=== PATIENT | female | born 1990 | race Hispanic/Latino ===

== ENCOUNTER 2017-06-23 08:30 | Emergency (ER) | payer SELFPAY ==
[2017-06-23 09:43] LABS: #Basophils 0.1 thou/uL (0.0-0.2); #Eosinphils 0.2 thou/uL (0.0-0.7); #Lymphocytes 1.9 thou/uL (1.20-3.40); #Monocytes 0.5 thou/uL (0.11-0.59); #Neutrophils 3.6 thou/uL (1.40-6.50); %Basophils 0.8 % (0.0-1.0); %Eosinophils 2.7 % (0.0-10.0); %Lymphocytes 30.4 % (21.0-51.0); %Monocytes 8.6 % (0.0-10.0); Hematocrit 43.4 % (36.0-47.0); Mean Platelet Volume 7.2 fL (7.4-10.4); Red Blood Cell (RBC) Count 4.97 mill/uL (4.20-5.40); White Blood Cell (WBC) Count 6.3 thou/uL (4.8-10.8)
[2017-06-23 09:51] LABS: Bilirubin Negative (Negative); Blood, Urine Negative (Negative); Glucose, Urine (Dipstick) Negative (Negative); Ketone, Urine Negative (Negative); Nitrite Negative (Negative); Protein, Urine (Dipstick) Negative (Neg-Trace); Urobilinogen 0.2 mg/dL (0.2-1.0)
[2017-06-23 09:56] LABS: ALT (SGPT) 18 U/L (8-55); AST (SGOT) 20 U/L (5-34); Alkaline Phosphatase 85 U/L (40-150); Anion Gap 12 mmol/L (10-20); BUN (Urea Nitrogen) 11 mg/dL (7.0-18.7); Bilirubin, Total 0.6 mg/dL (0.2-1.2); Calc. Creatinine Clearance 0 mL/min (70-130); Carbon Dioxide 24 mmol/L (22-29); Chloride 105 mmol/L (98-107); Estimated GFR-MDRD Greater than 90; Globulin 3.2 g/dL (2.4-3.5); Protein, Total 7.4 g/dL (6.0-8.3)
[2017-06-23 09:59] LABS: Troponin I Less than 0.010 ng/mL (< 0.028)
--- NOTE | 2017-06-23 10:10 | RAD ---
TWO VIEWS OF THE CHEST: 06/23/2017 HISTORY: Chest pain. Numbness. Chills. Seeing spots. COMPARISON: 09/16/2005 FINDINGS: No pneumothorax of pleural fluid. No focal consolidation or alveolar edema. Heart and mediastinal contour is unremarkable. Clips in the right upper quadrant suggest a prior cholecystectomy. IMPRESSION: No acute findings. POS: [facility]
[2017-06-23] MEDS ORDERED: Acetaminophen 500 MG TAB ONE (10:46)
== END 2017-06-23 12:47 | disposition home or self-care (01) ==
LOC: ERS 08:30
DX: E86.0 Dehydration (principal); M79.1 Myalgia; F17.210 Nicotine dependence, cigarettes, uncomplicated
CPT/HCPCS: 36415; 71020; 80053; 81003; 82553; 84484; 84703; 85025; 85379; 93005; 96360; 96361

== ENCOUNTER 2017-08-13 19:17 | Emergency (ER) | payer OTHER, SELFPAY ==
[2017-08-13] MEDS ORDERED: Ondansetron ODT 4 MG TAB ONE (22:09)
[2017-08-13] MEDS ORDERED: Ketorolac Tromethamine 30 MG/ML VIAL ONE (22:09)
== END 2017-08-13 22:10 | disposition home or self-care (01) ==
LOC: ERS 19:17
DX: J10.1 Influenza due to other identified influenza virus with other respiratory manifestations (principal); F17.210 Nicotine dependence, cigarettes, uncomplicated
CPT/HCPCS: 96372; J1885; Q0162

== ENCOUNTER 2018-05-26 07:46 | Observation (INO) | payer OTHER, SELFPAY ==
--- NOTE | 2018-05-26 08:28 | RAD ---
PORTABLE CHEST 1 VIEW: DATE: 05/26/18. TIME: 8:03 a.m. HISTORY: Cough. FINDINGS: The heart size is normal. The lungs are expanded without confluent areas of consolidation, pneumotho races, or pleural effusions. IMPRESSION: No radiographic evidence of acute cardiopulmonary process. POS: [facility]
[2018-05-26] MEDS ORDERED: Albuterol Sulfate 2.5 mg/0.5 ml Neb ONE (08:40)
[2018-05-26] MEDS ORDERED: Albuterol Sulfate 2.5 mg/3 ml Neb ONE (08:40)
[2018-05-26] MEDS ORDERED: predniSONE 20 MG TAB ONE (08:44)
[2018-05-26 09:05] LABS: #Eosinphils 0.3 thou/uL (0.0-0.7); #Lymphocytes 1.5 thou/uL (1.20-3.40); #Monocytes 0.9 thou/uL (0.11-0.59); #Neutrophils 10.7 thou/uL (1.40-6.50); %Basophils 0.2 % (0.0-1.0); %Eosinophils 2.6 % (0.0-10.0); %Lymphocytes 10.9 % (21.0-51.0); %Monocytes 6.8 % (0.0-10.0); %Neutrophils 79.7 % (42.0-75.0); Mean Corpuscular HGB CONC 32.4 g/dL (32.0-36.0); Mean Corpuscular Volume 86.4 fL (78.0-98.0); Mean Platelet Volume 7.3 fL (7.4-10.4); Platelet Count 304 thou/uL (130-400); RBC Distribution Width 12.3 % (11.5-14.5); Red Blood Cell (RBC) Count 5.34 mill/uL (4.20-5.40); White Blood Cell (WBC) Count 13.4 thou/uL (4.8-10.8)
[2018-05-26 09:08] LABS: BHCG - Serum Negative (NEGATIVE); Pregs Control Background? CLEAR/WHITE (CLR/WHITE); Pregs Control Bar Appear? YES (CONTROL BAR)
[2018-05-26 09:23] LABS: ALT (SGPT) 11 U/L (8-55); AST (SGOT) 16 U/L (5-34); Albumin 4.6 g/dL (3.5-5.0); Alkaline Phosphatase 91 U/L (40-150); Anion Gap 14 mmol/L (10-20); BUN (Urea Nitrogen) 7 mg/dL (7.0-18.7); Bilirubin, Total 0.8 mg/dL (0.2-1.2); Calc. Creatinine Clearance 0 mL/min (70-130); Calcium 9.6 mg/dL (7.8-10.44); Carbon Dioxide 20 mmol/L (22-29); Chloride 106 mmol/L (98-107); Estimated GFR-MDRD Greater than 90; Globulin 3.5 g/dL (2.4-3.5); Glucose 94 mg/dL (70-105); Potassium 3.8 mmol/L (3.5-5.1); Protein, Total 8.1 g/dL (6.0-8.3); Sodium 136 mmol/L (136-145)
[2018-05-26] MEDS ORDERED: Azithromycin 250 MG TAB ONE (09:30)
[2018-05-26] MEDS ORDERED: cefTRIAXone\\ROCEPHIN 1 GM VIAL ONE (09:30)
[2018-05-26] MEDS ORDERED: Acetaminophen 325 MG TAB PO PRN (11:38)
[2018-05-26] MEDS ORDERED: Ondansetron ODT 4 MG TAB PO PRN (11:38)
[2018-05-26] MEDS ORDERED: Guaifenesin DM 100-10/5 ML UDCUP PO PRN (11:38)
[2018-05-26 13:02] VITALS: BMI 27.9
[2018-05-26 15:09] LABS: Legionella Urinary Ag Negative (Negative); Strep pneumo Urine Ag NEGATIVE (NEGATIVE)
--- NOTE | 2018-05-26 17:12 | PDOC.FPRHP ---
- History of Present Illness Chief Complaint: Cough History of Present Illness: 28 yo F here with complaint of 24 hours of productive cough. She states that she started coughing last night. She also notes associated SOB and diarrhea. She denies bloody sputum, fever, chills, or chest pain. Her daughter was recently diagnosed with CAP and treated with amoxicillin. PCP [facility] ED Course: In the ED she was noted to be tachycardic and have an elevated WBC count with left shift. CXR was negative. D Dimer was also negative. Pt was started on azithromycin and rocephin for CAP. - Allergies/Adverse Reactions Allergies Allergy/AdvReac Type Severity Reaction Status Date / Time No Known Allergies Allergy Unverified 05/26/18 12:52 - Home Medications Medication Instructions Recorded Confirmed Type No Known 05/26/18 05/26/18 History - History PMHx: None PSHx: None FHx: Paternal HTN and DM Maternal HTN and DM Social: Occasional etoh. Denies tobacco. Occasional marijuana - Review of Systems General: denies: fever/chills, weight/appetite/sleep changes, night sweats Eyes: denies: vision changes ENT: reports: nasal congestion, rhinorrhea Respiratory: reports: cough, shortness of breath Cardiovascular: denies: chest pain, palpitation Gastrointestinal: reports: diarrhea. denies: nausea, vomiting, abdominal pain, GI bleeding Genitourinary: denies: dysuria Skin: denies: rashes, lesions Musculoskeletal: denies: pain, tenderness Neurological: denies: numbness, syncope Psychological: denies: anxiety, depression - Vital signs BP: 147/99 HR: 108 RR: 20 Tmax: 98.7 Pox: 95% on RA Wt: 66 kg - Physical Exam Constitutional: NAD, awake, alert and oriented HEENT: normocephalic and atraumatic, PERRLA, EOMI Neck: trachea midline Chest: no-tender to palpation, no lesions Heart: RRR, normal S1/S2, no murmurs/rubs/gallops -Lungs: Diffuse wheezing. No rhonchi Abdomen: soft, non-tender, bowel sounds present Musculoskeletal: normal structure, normal tone Neurological: no focal deficit, CN II-XII intact Skin: no rash/lesions, good turgor Heme/Lymphatic: no unusual bruising or bleeding Psychiatric: normal mood and affect, good judgment and insight FMR H&P: Results - Labs Result Diagrams: 05/26/18 08:46 05/26/18 08:46 Lab results: WBC 13.4 thou/uL (4.8-10.8) H 05/26/18 08:46 Hgb 15.0 g/dL (12.0-16.0) 05/26/18 08:46 Hct 46.1 % (36.0-47.0) 05/26/18 08:46 MCV 86.4 fL (78.0-98.0) 05/26/18 08:46 Plt Count 304 thou/uL (130-400) 05/26/18 08:46 Neutrophils % 79.7 % (42.0-75.0) H 05/26/18 08:46 Sodium 136 mmol/L (136-145) 05/26/18 08:46 Potassium 3.8 mmol/L (3.5-5.1) 05/26/18 08:46 Chloride 106 mmol/L (98-107) 05/26/18 08:46 Carbon Dioxide 20 mmol/L (22-29) L 05/26/18 08:46 BUN 7 mg/dL (7.0-18.7) 05/26/18 08:46 Creatinine 0.69 mg/dL (0.6-1.1) 05/26/18 08:46 Glucose 94 mg/dL (70-105) 05/26/18 08:46 Calcium 9.6 mg/dL (7.8-10.44) 05/26/18 08:46 Total Bilirubin 0.8 mg/dL (0.2-1.2) 05/26/18 08:46 AST 16 U/L (5-34) 05/26/18 08:46 ALT 11 U/L (8-55) 05/26/18 08:46 Alkaline Phosphatase 91 U/L (40-150) 05/26/18 08:46 Serum Total Protein 8.1 g/dL (6.0-8.3) 05/26/18 08:46 Albumin 4.6 g/dL (3.5-5.0) 05/26/18 08:46 - Radiology Interpretation Chest x-ray Status: report reviewed by me (NAD) FMR H&P: A/P - Problem List (1) Sepsis Current Visit: Yes Status: Acute Code(s): A41.9 - SEPSIS, UNSPECIFIED ORGANISM (2) CAP (community acquired pneumonia) Current Visit: Yes Status: Acute Code(s): J18.9 - PNEUMONIA, UNSPECIFIED ORGANISM Qualifiers: Laterality: unspecified laterality Qualified Code(s): J18.9 - Pneumonia, unspecified organism - Plan Sepsis - Pt received adequate IVF in ER. Continue maintenance IVF - Rocephin/Azithro - Cx pending - Monitor vitals - Legionella/s pneumo urine antigen pending CAP - above Diet regular PPx SCD, FAUZIA score 1 Code DNR. Had long discussion with patient regarding code status. I explained that typically patients her age and with her good health choose to be full code. She states that she will continue to consider her options and let her doctor or nurse know if she changes her mind. Dispo: Pt is currently stable. I expect that she will improve quickly. Likely LOS 1-2 days. FMR H&P: Upper Level - Plan Date/Time: 05/26/18 049 I, [], have evaluated this patient and agree with findings/plan as outlined by international logistics manager resident. Pertinent changes/additions are listed here. Attending Addendum - Attending Addendum Date/Time: 05/26/18 043 I personally evaluated the patient and discussed the management with Dr. Doll and Pedro Pablo. I agree with and repeated the History, Examination, Assessment and Plan documented above with any addition or exceptions noted below. Ill appearing, no distress, coughing throughout interview Tachy, regular, without murmur No inc wob, no crackles, diffuse wheezes BS+, NTTP Fluid resuscitate, empiric tx for cap, steroids + nebs
[2018-05-26] MEDS ORDERED: Doxycycline 100 MG CAP PO SCH (21:00)
[2018-05-26] MEDS: guaiFENesin/DM ER PO SCH (21:20)
[2018-05-27 03:45] VITALS: TEMP 98.6
[2018-05-27 05:37] LABS: Anion Gap 12 mmol/L (10-20); BUN (Urea Nitrogen) 5 mg/dL (7.0-18.7); Calc. Creatinine Clearance 133 mL/min (70-130); Calcium 9.4 mg/dL (7.8-10.44); Carbon Dioxide 22 mmol/L (22-29); Chloride 105 mmol/L (98-107); Estimated GFR-MDRD Greater than 90; Glucose 92 mg/dL (70-105); Potassium 3.3 mmol/L (3.5-5.1); Sodium 136 mmol/L (136-145)
[2018-05-27 05:42] LABS: #Basophils 0.1 thou/uL (0.0-0.2); #Eosinphils 0.3 thou/uL (0.0-0.7); #Lymphocytes 3.1 thou/uL (1.20-3.40); #Monocytes 1.2 thou/uL (0.11-0.59); #Neutrophils 6.9 thou/uL (1.40-6.50); %Basophils 0.4 % (0.0-1.0); %Eosinophils 2.5 % (0.0-10.0); %Lymphocytes 26.7 % (21.0-51.0); %Monocytes 10.5 % (0.0-10.0); %Neutrophils 59.9 % (42.0-75.0); Hemoglobin 13.8 g/dL (12.0-16.0); Mean Corpuscular HGB CONC 33.3 g/dL (32.0-36.0); Mean Corpuscular Volume 87.1 fL (78.0-98.0); Mean Platelet Volume 7.3 fL (7.4-10.4); Platelet Count 290 thou/uL (130-400); RBC Distribution Width 12.2 % (11.5-14.5); Red Blood Cell (RBC) Count 4.74 mill/uL (4.20-5.40); White Blood Cell (WBC) Count 11.5 thou/uL (4.8-10.8)
--- NOTE | 2018-05-27 06:24 | PDOC.FM ---
- Objective MAR Reviewed: Yes Vital Signs & Weight: Vital Signs (12 hours) Temp Pulse Resp BP BP Pulse Ox 05/27/18 03:39 98.6 F 83 18 128/79 96 05/26/18 23:40 98.5 F 82 16 132/83 97 05/26/18 19:46 98.9 F 88 16 129/75 95 Weight Weight 67.132 kg I&O: 05/25/18 05/26/18 05/27/18 06:59 06:59 06:59 Intake Total 930 Output Total 550 Balance 380 Result Diagrams: 05/27/18 05:09 05/27/18 05:09 Dx/Plan (1) CAP (community acquired pneumonia) Code(s): J18.9 - PNEUMONIA, UNSPECIFIED ORGANISM Status: Acute Qualifiers: Laterality: unspecified laterality Qualified Code(s): J18.9 - Pneumonia, unspecified organism (2) Sepsis Code(s): A41.9 - SEPSIS, UNSPECIFIED ORGANISM Status: Acute - Plan Plan: This is an otherwise healthy 28 yo female Sepsis 2/2 CAP -Resolved. Afebrile, VSS overnight. Legionella/ s pneumo urine antigen negative. Flu swab negative CAP -Pt. is receiving rocephin/azithromycin. Code: DNR Prophylaxis: Family: Disposition: home today pending clinical presentation
[2018-05-27] MEDS ORDERED: Potassium Chloride 20 MEQ TAB PO SCH (08:00)
[2018-05-27] MEDS ORDERED: Cepastat Lozenges 1 LOZ PO PRN (08:16)
[2018-05-27] MEDS ORDERED: cefTRIAXone\\ROCEPHIN 1 GM in Sodium Chloride 0.9% 100 ML IVPB SCH (09:00)
[2018-05-27] MEDS ORDERED: Azithromycin 250 MG TAB PO SCH (09:00)
[2018-05-27] MEDS: guaiFENesin/DM ER PO SCH (09:33)
--- NOTE | 2018-05-27 11:02 | CT ---
CT CHEST WITH CONTRAST: Date: 05/27/18 HISTORY: Pneumonia. COMPARISON: Chest radiograph dated 05/26/18. FINDINGS: There is a 5.0 mm nodule in the left lung base, which is ovoid. No evidence for pneumonia. No pneumot horax. Thyroid is unremarkable. No mediastinal adenopathy. No pericardial effusion. Prior cholecystectomy. R emainder of the upper abdomen is unremarkable. No thoracic spine compression fracture. There is a hypodensity interpolar left kidney not definitivel y a cyst. No acute rib fracture. IMPRESSION: 1. No evidence for pneumonia. 2. 5.0 mm left lower lobe pulmonary nodule. In a low risk patient, no follow-up is required. 3. Hypodensity interpolar left kidney not definitively a cyst. Follow-up ultrasound or renal protoco l CT/MRI in 6 months recommended. POS: [facility]
[2018-05-27] MEDS ORDERED: Albuterol Sulfate 1.25 MG/3 ML NEB NEB PRN (11:29)
[2018-05-27] MEDS ORDERED: Albuterol Sulfate 1.25 MG/3 ML NEB NEB SCH (11:30)
[2018-05-27 12:10] VITALS: BP 123/67
[2018-05-27 12:50] LABS: Syphilis Antibody Nonreactive (Nonreactive); Syphilis Antibody Index 0.05 S/CO (<1.00 Non-Reactive)
[2018-05-27 12:52] LABS: HIV (1/2) Antibody/Antigen Non-Reactive (NonReactive); Hep C IgG Ab Non-Reactive (NonReactive); Hep C Index 0.12 S/CO (0-0.79)
--- NOTE | 2018-05-27 13:09 | ADD-PRG ---
ADDENDUM This is an addendum to the note of Dr. Chucky Griffiths. Ms. Castrejon is a pleasant 28-year-old lady who was admitted with possible pneumonia. Her lungs still sound quite "wet" and she still has some expiratory wheezes and rhonchi. Her physical exam and hist ory and physical seem consistent with atypical pneumonia and we will discontinue Rocephin and continu e her on azithromycin. Clinically, she states she feels much better. We will likely discharge her l ater today or tomorrow on Zithromax for close followup.
--- NOTE | 2018-05-27 14:27 | PDOC.EVN ---
Event Note - Event Note Event Note: S: Feeling much better and sleeping comfortably. She is comfortable with discharge this afternoon with follow-up in clinic on Friday. Symptoms improved with neb. Discussed labs and CT findings and recommendation for repeat in 6 months. O: VSS, satting 96% on RA HEENT: atraumatic, normocephalic CV: RRR, no murmur RESP: scattered expiratory wheezing, greater at bases BL ABD: nondistended EXT: without edema A/P: Discharge this afternoon to complete course of azithromycin outpatient. Will also send neb rx as patient has nebulizer at home and had relief with treatment here. Return precautions discussed.
[2018-05-27] MEDS ORDERED: Benzonatate 100 MG CAP PO SCH (15:00)
--- NOTE | 2018-05-28 00:45 | DIS-2 ---
DATE OF ADMISSION: 05/26/2018 DATE OF DISCHARGE: 05/27/2018 ADMITTING ATTENDING: Dr. Doug Thomas. DISCHARGE ATTENDING: Dr. Jose R Montemayor. PROCEDURES: 1. Chest CT with contrast shows no evidence of pneumonia, 5 mm left lower pulmonary nodule, low risk , no followup required, hypodensity, anterior pole of the left kidney, not definitively established. 2. Chest x-ray 1 view, no radiographic evidence of acute cardiopulmonary process. CONSULTS: None. PRIMARY DIAGNOSIS: Community-acquired pneumonia. SECONDARY DIAGNOSIS: None. DISCHARGE MEDICATIONS: 1. Azithromycin 250 mg p.o. daily for 3 days. 2. DuoNeb. DISCONTINUED MEDICATIONS: Rocephin. BRIEF HISTORY OF PRESENT ILLNESS AND HOSPITAL COURSE: This is a 28-year-old female here with complai nt of 24 hours of productive cough and associated shortness of breath and diarrhea. She denied blood y sputum, fevers, chills or chest pain. Daughter was recently diagnosed with CPAP, treated with amox icillin. During the patient's hospital course, she tolerated the antibiotics well and improved throu ghout the night. Today, patient made a comment about wanting to go home and that she was feeling bet ter. While patient was here, she was also written for HIV, RPR and hepatitis C which was negative al l x3. At the time of discharge, patient was improved. Breath sounds were improved and patient was r petr to go. DISPOSITION: Stable. DISCHARGE INSTRUCTIONS: 1. Location: Home. 2. Diet: Regular. 3. Activity: As tolerated. 4. Follow up Dr. Cook in 3 days.
--- NOTE | 2018-05-31 20:16 | EKG ---
Test Reason : Blood Pressure : / mmHG Vent. Rate : 093 BPM Atrial Rate : 093 BPM P-R Int : 140 ms QRS Dur : 072 ms QT Int : 358 ms P-R-T Axes : 067 062 021 degrees QTc Int : 445 ms Normal sinus rhythm with sinus arrhythmia Normal ECG When compared with ECG of 23-JUN-2017 09:52, Non-specific change in ST segment in Lateral leads T wave inversion no longer evident in Inferior leads T wave inversion no longer evident in Lateral leads Confirmed by Karuna BURNS ([id number]) on 05/31/2018 8:15:46 PM Referred By: CANDICE Confirmed By:Karuna BURNS
== END 2018-05-27 14:49 | disposition home or self-care (01) ==
LOC: ERS 07:46 → 2SW 12:43
PROVIDERS: ADMIT Family Medicine; ATTEND Family Medicine
DX: A41.9 Sepsis, unspecified organism (principal); J18.9 Pneumonia, unspecified organism; Z66 Do not resuscitate
CPT/HCPCS: 36415; 71045; 71260; 80048; 80053; 84703; 85025; 85379; 86780; 86803; 87389; 87804; 87899; 93005; 93010; 94640; 94644; 96361; 96365; 96366; A4216; G0378; J0696; J7050; J7506; J7611; J7620

== ENCOUNTER 2018-06-28 10:04 | Observation (INO) | payer SELFPAY ==
[2018-06-28] MEDS ORDERED: Dexamethasone 10 MG/ML VIAL ONE (10:25)
[2018-06-28 10:34] LABS: Lactate 1.54 mmol/L (0.50-2.20)
[2018-06-28 10:42] LABS: BHCG - Serum Negative (NEGATIVE); Pregs Control Background? CLEAR/WHITE (CLR/WHITE); Pregs Control Bar Appear? YES (CONTROL BAR)
[2018-06-28 10:50] LABS: Hemoglobin 16.6 g/dL (12.0-16.0); Mean Corpuscular HGB CONC 32.5 g/dL (32.0-36.0); Mean Corpuscular Volume 86.4 fL (78.0-98.0); Mean Platelet Volume 7.4 fL (7.4-10.4); Platelet Count 353 thou/uL (130-400); RBC Distribution Width 12.7 % (11.5-14.5); Red Blood Cell (RBC) Count 5.92 mill/uL (4.20-5.40)
[2018-06-28 10:52] LABS: ALT (SGPT) 15 U/L (8-55); AST (SGOT) 17 U/L (5-34); Albumin 4.9 g/dL (3.5-5.0); Alkaline Phosphatase 111 U/L (40-150); Anion Gap 20 mmol/L (10-20); BUN (Urea Nitrogen) 6 mg/dL (7.0-18.7); Bilirubin, Total 1.8 mg/dL (0.2-1.2); Calc. Creatinine Clearance 0 mL/min (70-130); Calcium 10.2 mg/dL (7.8-10.44); Carbon Dioxide 19 mmol/L (22-29); Chloride 99 mmol/L (98-107); Estimated GFR-MDRD 79; Globulin 3.7 g/dL (2.4-3.5); Glucose 94 mg/dL (70-105); Potassium 4.1 mmol/L (3.5-5.1); Protein, Total 8.6 g/dL (6.0-8.3); Sodium 134 mmol/L (136-145)
[2018-06-28 11:19] LABS: Band 12 % (5-11); Eosinophils 4 % (0-10); Lymphocytes 6 % (21-51); MDiff Complete? YES; Monocytes 2 % (0-10); Neutrophil 74 % (42-75); PLT Morphology Comment Appears Adequate; RBC Morphology Normal; White Blood Cell (WBC) Count 28.4 thou/uL (4.8-10.8)
[2018-06-28] MEDS ORDERED: Ampicillin/Sulbactam 3 GM in Sodium Chloride 0.9% 100 ML IVPB SCH (11:30)
--- NOTE | 2018-06-28 12:03 | RAD ---
PORTABLE CHEST 1 VIEW: DATE: 06/28/2018. TIME: 9:44 a.m. HISTORY: Sore throat, fever. FINDINGS: The heart size is normal. The lungs are expanded without focal areas of consolidation, pneumothorace s, or pleural effusions. IMPRESSION: No acute process. POS: [facility]
[2018-06-28] MEDS ORDERED: Ketorolac Tromethamine 30 MG/ML VIAL ONE (12:34)
[2018-06-28 12:37] LABS: MONO NEGATIVE CONTROL ZONE White (Negative) (White); MONO POSITIVE CONTROL Pink Line (Positive) (PINK/RED); Mononucleosis NEGATIVE (NEGATIVE)
--- NOTE | 2018-06-28 12:45 | PDOC.FPRHP ---
- History of Present Illness Chief Complaint: sore throat History of Present Illness: Ms. Castrejon presents to the ED with throat pain and body aches for the past two days. She reports that she started feeling bad on friday, decreased PO intake, solids and liquids causing pain. attempted to treat with over the counter meds. continued to feel bad and be in a lot of pain so she came to the hospital. She denies any difficulty breathing, fever, chills, nausea, vomiting or diarrhea. She has been admitted previously once a year for the past two years with pneumonia. She denies any sick contacts or other exposures. denies history of STIs. ED Course: mono/GAS/Flu all negative, CXR, CBC, CMP, LA 1 L NS, - Allergies/Adverse Reactions Allergies Allergy/AdvReac Type Severity Reaction Status Date / Time No Known Allergies Allergy Unverified 05/26/18 12:52 - History PMHx:none PSHx: CSection FHx: none Social: daily marijuana, social tobacco/alcohol - Review of Systems General: denies: fever/chills, weight/appetite/sleep changes - Vital signs BP: [] HR: [] RR: [] Tmax: [] Pox: []% on [] Wt: [] FMR H&P: Results - Labs Result Diagrams: 06/29/18 03:56 06/29/18 03:56 Lab results: WBC 28.4 thou/uL (4.8-10.8) H 06/28/18 10:18 Hgb 16.6 g/dL (12.0-16.0) H 06/28/18 10:18 Hct 51.2 % (36.0-47.0) H 06/28/18 10:18 MCV 86.4 fL (78.0-98.0) 06/28/18 10:18 Plt Count 353 thou/uL (130-400) 06/28/18 10:18 Band Neuts % (Manual) 12 % (5-11) H 06/28/18 10:18 Sodium 134 mmol/L (136-145) L 06/28/18 10:18 Potassium 4.1 mmol/L (3.5-5.1) 06/28/18 10:18 Chloride 99 mmol/L (98-107) 11/04/18 10:18 Carbon Dioxide 19 mmol/L (22-29) L 06/28/18 10:18 BUN 6 mg/dL (7.0-18.7) L 06/28/18 10:18 Creatinine 0.85 mg/dL (0.6-1.1) 06/28/18 10:18 Glucose 94 mg/dL (70-105) 06/28/18 10:18 Lactic Acid 1.7 mmol/L (0.5-2.2) 06/28/18 10:18 Calcium 10.2 mg/dL (7.8-10.44) 06/28/18 10:18 Total Bilirubin 1.8 mg/dL (0.2-1.2) H 06/28/18 10:18 AST 17 U/L (5-34) 06/28/18 10:18 ALT 15 U/L (8-55) 06/28/18 10:18 Alkaline Phosphatase 111 U/L (40-150) 06/28/18 10:18 Serum Total Protein 8.6 g/dL (6.0-8.3) H 06/28/18 10:18 Albumin 4.9 g/dL (3.5-5.0) 06/28/18 10:18 FMR H&P: A/P - Problem List (1) Tonsillitis Current Visit: Yes Status: Acute Code(s): J03.90 - ACUTE TONSILLITIS, UNSPECIFIED (2) Volume depletion Current Visit: Yes Status: Acute Code(s): E86.9 - VOLUME DEPLETION, UNSPECIFIED - Plan Tonsillitis - strep/mono/flu neg - CT head/neck neg for peritonsillar abcess - no concern for airway obstruction - HIV/HepB/C ordered - throat swab for GC, HSV, fungal infection - s/p unasyn in ED, continue for now, consider switching to augmentin in AM - tylenol/motrin for pain control Volume depletion - IV fluid resucitation - PO as tolerated ppx: none code: full Disposition/LOS: possible DC tomorrow on PO abx FMR H&P: Upper Level - Pertinent history Siomara Castrejon is a 28 year old female who presents to the ED with a 2 day history of sore throat, fever, and chills. Found to have enlarged tonsils. CT of the soft tissues of the neck was performed in order to rule out peritonsillar abscess and airway compromise, and was negative. - Pertinent findings Physical Exam: General: well, non-toxic appearing; no trismus HEENT: 4+ tonsilar hypertrophy with exudates; no uvular deviation - Plan Date/Time: 06/28/18 1241 I, Dara Rico, have evaluated this patient and agree with findings/plan as outlined by communications intern resident. Pertinent changes/additions are listed here. Sepsis 2/2 Acute tonsillopharyngitis - appropriately volume resuscitated in ED. -CT scan rules out airway compromise/abscess - pt has received decadron and unasyn, and notes improvement in tonsillar swelling - continue unasyn; possible transition to PO antibiotics in AM - continue Tylenol/motrin for pain and fever. Attending Addendum - Attending Addendum Date/Time: 06/28/18 1572 I personally evaluated the patient and discussed the management with Dr. Fontana and Dr. Rico I agree with the History, Examination, Assessment and Plan documented above with any addition or exceptions noted below. 28 yo female admitted for severe tonsilarpharyngitis. Will continue IV antibiotics. Consider consulting ENT prior to d/c vs outpatient for removal. Significant 3+ tonsils with exudate on exam. Cultures pending. Strep A negative. Ct/GC pending. Trend white count in AM. No respiratory compromise. Ariana
[2018-06-28] MEDS ORDERED: HYDROcodone/Acetaminophen 5/325 mg Tablet PO PRN ×2 (12:55)
[2018-06-28] MEDS ORDERED: Ondansetron PF 4 MG/2 ML Vial IVP PRN (12:55)
[2018-06-28] MEDS ORDERED: Ondansetron ODT 4 MG TAB SL PRN (12:55)
--- NOTE | 2018-06-28 13:08 | CT ---
CT OF NECK PERFORMED WITH INTRAVENOUS CONTRAST ENHANCEMENT: HISTORY: Sore throat x 2 days. FINDINGS: Lung apices are clear. The thyroid gland region is unremarkable. The parotid and submandibular glan ds appear unremarkable. The visualized brain parenchyma is normal. There is diffuse enhancement to the tonsillar region with a symmetric striated appearance to the tons illar regions. This includes tonsillar pillars in the lingular tonsil region. There is also fairly prominent enhancement to what are felt to represent reactive lymph nodes along the jugular chains. T he parapharyngeal spaces are clear. IMPRESSION: Striated (tiger stripe) appearance to the tonsils which is a bilateral and symmetric appearance. Thi s is a fairly good indicator of nonsuperative tonsillitis. POS: [facility]
[2018-06-28] MEDS: Lactated Ringer's 1,000 ML IV SCH ×2 (13:51→23:10)
[2018-06-28] MEDS ORDERED: Ibuprofen 600 MG TAB PO PRN (13:57)
[2018-06-28] MEDS ORDERED: Iopamidol 370 76% 100 ML VIAL ONE (14:25)
[2018-06-28 16:11] VITALS: BMI 27.4
[2018-06-28] MEDS ORDERED: Acetaminophen 325 MG TAB PO PRN (17:52)
[2018-06-28] MEDS: Ampicillin/Sulbactam 3 GM in Sodium Chloride 0.9% 100 ML IVPB SCH ×2 (18:32→23:07)
[2018-06-28 19:39] LABS: HIV (1/2) Antibody/Antigen Non-Reactive (NonReactive); HIV 1/2 INDEX 0.14 S/CO (<1.00); Hep B Surf AB Non-Reactive (NonReactive); Hep C IgG Ab Non-Reactive (NonReactive); Hep C Index 0.11 S/CO (0-0.79)
[2018-06-28] MEDS ORDERED: Amoxicillin/Potassium Clav 875 MG TAB PO SCH (21:00)
[2018-06-29 05:12] LABS: ALT (SGPT) 11 U/L (8-55); AST (SGOT) 16 U/L (5-34); Albumin 3.8 g/dL (3.5-5.0); Alkaline Phosphatase 84 U/L (40-150); Anion Gap 12 mmol/L (10-20); BUN (Urea Nitrogen) 7 mg/dL (7.0-18.7); Bilirubin, Total 0.5 mg/dL (0.2-1.2); Calc. Creatinine Clearance 129 mL/min (70-130); Carbon Dioxide 22 mmol/L (22-29); Chloride 105 mmol/L (98-107); Estimated GFR-MDRD Greater than 90; Globulin 3.1 g/dL (2.4-3.5); Glucose 114 mg/dL (70-105); Protein, Total 6.9 g/dL (6.0-8.3); Sodium 135 mmol/L (136-145)
[2018-06-29 05:23] LABS: Band 11 % (5-11); Hemoglobin 13.3 g/dL (12.0-16.0); Lymphocytes 9 % (21-51); MDiff Complete? YES; Mean Corpuscular HGB CONC 32.6 g/dL (32.0-36.0); Mean Corpuscular Hemoglobin 28.7 pg (27.0-31.0); Mean Platelet Volume 8.1 fL (7.4-10.4); Monocytes 1 % (0-10); Neutrophil 79 % (42-75); PLT Morphology Comment Appears Adequate; Platelet Count 278 thou/uL (130-400); RBC Distribution Width 12.7 % (11.5-14.5); Red Blood Cell (RBC) Count 4.65 mill/uL (4.20-5.40); White Blood Cell (WBC) Count 18.4 thou/uL (4.8-10.8)
[2018-06-29] MEDS: Ampicillin/Sulbactam 3 GM in Sodium Chloride 0.9% 100 ML IVPB SCH ×3 (06:01→18:20)
--- NOTE | 2018-06-29 08:05 | PDOC.FM ---
- Subjective Subjective: Patient reporting minimal improvement and still not tolerating PO. Only popscicles. Denies fever, OQUENDO, eye pain, ear pain. Reports cough. Did not tolerate broth last night. - Objective MAR Reviewed: Yes Vital Signs & Weight: Vital Signs (12 hours) Temp Pulse Resp BP Pulse Ox 06/29/18 07:27 97.9 F 61 20 114/72 98 06/29/18 03:42 97.8 F 73 18 109/72 98 06/29/18 00:00 98.2 F 69 16 102/66 98 Weight Weight 68.039 kg Result Diagrams: 06/29/18 03:56 06/29/18 03:56 Phys Exam - Physical Examination Constitutional: NAD HEENT: moist MMs 3+ tonsils with exudates and erythema shotty anterior cervical nodes Respiratory: no wheezing, no rales, clear to auscultation bilateral Cardiovascular: RRR, no significant murmur Gastrointestinal: soft, non-tender, no distention Musculoskeletal: no edema Neurological: moves all 4 limbs Psychiatric: A&O x 3 Dx/Plan (1) Tonsillitis Code(s): J03.90 - ACUTE TONSILLITIS, UNSPECIFIED Status: Acute (2) Volume depletion Code(s): E86.9 - VOLUME DEPLETION, UNSPECIFIED Status: Acute - Plan Plan: Acute tonsillopharyngitis - appropriately volume resuscitated in ED. - CT scan negative - pt has received decadron and unasyn, and notes improvement in tonsillar swelling, but continued pain and not tolerating PO - transition to Augmentin tomorrow. - continue Tylenol/motrin for pain and fever. - chloraseptic spray BID Sepsis, resolved VTE PPX: SCD IVF: LR @ 100 Code status: Full Dispo: Likely d/c tomorrow
[2018-06-29] MEDS: Enoxaparin Sodium 40 MG/0.4 ML SYRINGE SC SCH (08:08)
[2018-06-29] MEDS ORDERED: Chloraseptic Spray 180 ml Bottle PO PRN (10:37)
[2018-06-30] MEDS: Ampicillin/Sulbactam 3 GM in Sodium Chloride 0.9% 100 ML IVPB SCH (00:10)
--- NOTE | 2018-06-30 05:15 | PDOC.FM ---
- Subjective Subjective: Patient reports improved pain and able to tolerate dinner last night. Reports mild cough and sore throat. Denies fever/chills, n/v, abd pain, chest pain, and change in urination pattern. - Objective MAR Reviewed: Yes Vital Signs & Weight: Vital Signs (12 hours) Temp Pulse Resp BP Pulse Ox 06/29/18 19:34 98.1 F 69 20 98/62 98 Weight Weight 68.039 kg Result Diagrams: 06/29/18 03:56 06/29/18 03:56 Phys Exam - Physical Examination Constitutional: NAD HEENT: moist MMs tonsillar enlargement 3+, tonsillar exudates shotty anterior cervical nodes Respiratory: no wheezing, no rales, clear to auscultation bilateral Cardiovascular: RRR Neurological: moves all 4 limbs Psychiatric: normal affect, A&O x 3 Dx/Plan (1) Tonsillitis Code(s): J03.90 - ACUTE TONSILLITIS, UNSPECIFIED Status: Acute (2) Volume depletion Code(s): E86.9 - VOLUME DEPLETION, UNSPECIFIED Status: Acute - Plan Plan: Acute tonsillopharyngitis - appropriately volume resuscitated in ED. - CT scan negative - pt has received decadron and unasyn, and notes improvement in tonsillar swelling, but continued pain and not tolerating PO - transition to Augmentin today. - continue Tylenol/motrin for pain and fever. - chloraseptic spray BID - thoat culture for chlamydia and gonorrhea, CMV, and ASO titers pending. Sepsis, resolved VTE PPX: SCD IVF: LR @ 100 Code status: Full Dispo: d/c home today.
[2018-06-30 07:02] VITALS: BP 108/73; TEMP 98
[2018-06-30] MEDS: Enoxaparin Sodium 40 MG/0.4 ML SYRINGE SC SCH (08:14)
[2018-06-30] MEDS ORDERED: Amoxicillin/Potassium Clav 500 MG TAB PO SCH (09:00)
--- NOTE | 2018-06-30 12:14 | PRG ---
DATE OF SERVICE: 06/30/2018 This morning, Ms. Castrejon looks and feels much better. Her group A strep test was negative. It is l ikely she had an anaerobic infection and is much improved with fluids and antibiotics. She is ready for discharge on Augmentin. Her white count has dropped from 28,000 to 18,000. Her throat still nancy wed some mild exudate on the left tonsil, but no marked erythema and she is eating normally. She is afebrile with stable vital signs. Discharge later today.
[2018-07-01 07:35] LABS: CMV IgG AB Greater than 10.00 U/mL (0.00-0.59)
== END 2018-06-30 12:45 | disposition home or self-care (01) ==
LOC: ERS 10:04 → T4-B 12:55 → INTOOBSV 12:55
PROVIDERS: ADMIT Student in an Organized Health Care Education/Training Program; ATTEND Student in an Organized Health Care Education/Training Program
DX: J03.90 Acute tonsillitis, unspecified (principal); E86.9 Volume depletion, unspecified
CPT/HCPCS: 36415; 70491; 71045; 80053; 83605; 84703; 85025; 86060; 86308; 86644; 86645; 86706; 86803; 87040; 87081; 87389; 87430; 96361; 96365; 96366; 96372; 96375; G0378; J0295; J1100; J1650; J1885; J7050

== ENCOUNTER 2018-10-15 18:26 | Emergency (ER) | payer SELFPAY ==
--- NOTE | 2018-10-15 18:56 | RAD ---
CHEST TWO VIEWS 10/15/18 INDICATION: Cough. COMPARISON: Prior exam dated 06/23/17. IMPRESSION: No acute cardiopulmonary abnormality. The examination is not appreciably changed from the comparison. POS: [facility]
== END 2018-10-15 19:18 | disposition home or self-care (01) ==
LOC: ERS 18:26
DX: J20.9 Acute bronchitis, unspecified (principal); F17.210 Nicotine dependence, cigarettes, uncomplicated; Z71.6 Tobacco abuse counseling
CPT/HCPCS: 71046; 99406

== ENCOUNTER 2018-11-18 10:27 | Emergency (ER) | payer SELFPAY ==
--- NOTE | 2018-11-18 11:21 | RAD ---
FChest AP view INDICATION: Chest pain COMPARISON: Chest 2 views dated October 15, 2018 FINDINGS: The lungs are clear. The heart size is normal. No pleural effusion or pneumothorax is evide nt. No acute osseous abnormality is noted. Mild scoliosis of the thoracic spine. IMPRESSION: No acute cardiopulmonary abnormality.
== END 2018-11-18 12:05 | disposition home or self-care (01) ==
LOC: ERS 10:27
DX: J45.909 Unspecified asthma, uncomplicated (principal); F17.210 Nicotine dependence, cigarettes, uncomplicated
CPT/HCPCS: 71045

== ENCOUNTER 2025-08-13 01:37 | Emergency (ER) | payer SELFPAY ==
[2025-08-13] MEDS ORDERED: predniSONE 20 MG TAB ONE (02:50)
[2025-08-13] MEDS ORDERED: Famotidine 20 MG TAB ONE (02:50)
== END 2025-08-13 03:15 | disposition home or self-care (01) ==
LOC: ERS 01:37
DX: R21 Rash and other nonspecific skin eruption (principal); F17.210 Nicotine dependence, cigarettes, uncomplicated
CPT/HCPCS: 99282; J7512